=== PATIENT | female | born 1970 | race Caucasian/White ===

== ENCOUNTER 2020-07-04 16:15 | Outpatient (CLI) | payer OTHER, SELFPAY ==
--- NOTE | ~2020-07-04 | XR_ITS ---
XR chest 2V DATE: 07/04/2020 16:37 INDICATION: Dyspnea on exertion, left-sided chest pain. History of asthma. TECHNIQUE: PA and lateral views COMPARISON: None FINDINGS: Normal heart size. Prominent right cardiophrenic fat pad. No pulmonary infiltrate or consolidation, pleural effusion or pulmonary vascular congestion or pneumo thorax. IMPRESSION: No active cardiopulmonary disease Reviewed, dictated and finalized at location A. SEPARATOR
== END 2020-07-04 16:16 | disposition home or self-care (01) ==
PROVIDERS: PCP Family Medicine; Visit Provider Family Medicine
DX: R06.09 Other forms of dyspnea (principal)
CPT/HCPCS: 71046

== ENCOUNTER 2020-07-05 13:45 | Outpatient (CLI) | payer OTHER, SELFPAY ==
--- NOTE | ~2020-07-05 | CT_ITS ---
EXAMINATION: CTA chest PE protocol DATE: 07/05/2020 14:14 INDICATION: Chest pain. Shortness of breath. Elevated d-dimer. TECHNIQUE: Computed tomography (CT) pulmonary angiogram of the chest was performed with 100 mL Omnipa que-350 intravenous contrast. Additional 3D reconstructions utilizing coronal maximum intensity proje ction (MIP) were performed. Automated exposure control and iterative reconstruction technique were em ployed. The dose-length product was 672.89 mGy-cm. COMPARISON: None FINDINGS: Excellent contrast opacification of the pulmonary arteries. There is mild streak artifact from dense contrast in the superior vena cava and right atrium. Minimal scattered respiratory motion artifact wh ich does not significantly limit evaluation. No pulmonary embolism. Minimal atelectasis at the right lung base. No pneumonia, pulmonary edema, pleural effusion or pneumothorax. Heart size is normal. No pericardial effusion. Thoracic aorta is normal in caliber with no dissection. 1.8 cm left thyroid nod ule. No pathologically enlarged thoracic lymphadenopathy. Small sliding-type hiatal hernia. 1.2 cm lo w-attenuation splenic lesion most likely a cyst or hemangioma. Mild to moderate thoracic spondylosis. IMPRESSION: 1. No pulmonary embolism or other acute cardiopulmonary disease. 2. Small sliding-type hiatal hernia. 3. 1.8 cm left thyroid nodule. Would recommend thyroid ultrasound for risk stratification. Reviewed, dictated and finalized at location B. UCT COMMUNICATIONS MANAGER IMPRESSION: 1. No pulmonary embolism or other acute cardiopulmonary disease. 2. Small sliding-type hiatal hernia. 3. 1.8 cm left thyroid nodule. Would recommend thyroid ultrasound for risk stra tification.
== END 2020-07-05 13:46 | disposition home or self-care (01) ==
PROVIDERS: PCP Family Medicine; Visit Provider Family Medicine
DX: R79.1 Abnormal coagulation profile (principal); K44.9 Diaphragmatic hernia without obstruction or gangrene; E04.1 Nontoxic single thyroid nodule
CPT/HCPCS: 71275; Q9967

== ENCOUNTER 2020-07-15 13:26 | Outpatient (CLI) | payer OTHER, SELFPAY ==
--- NOTE | ~2020-07-15 | US_ITS ---
EXAMINATION: US thyroid DATE: 07/15/2020 13:56 INDICATION: Nontoxic single thyroid nodule. TECHNIQUE: Multiple ultrasound images of the thyroid were obtained. COMPARISON: Chest CT 07/05/2020 FINDINGS: The right thyroid lobe measures 5.3 x 1.5 x 1.7 cm. The left thyroid lobe measures 4.7 x 1.7 x 1.8 c m. In the right thyroid lobe, there is a 4 mm nodule. In the right thyroid lobe, there is a 5 mm nik id, hypoechoic, [id number] nodule with ill-defined margin without echogenic foci (TI-RADS TR4). In the left thyroid lobe, there is a 2.4 cm mixed cystic and solid, hypoechoic, [id number] nodul e with smooth margin without echogenic foci (TR3). IMPRESSION: 1. Thyroid nodules. Thyroid ultrasound is recommended in one year. Reviewed, dictated and finalized at location A. OGRAPHIC PRESS SET UP OPERATOR
== END 2020-07-15 13:27 | disposition home or self-care (01) ==
PROVIDERS: PCP Family Medicine; Visit Provider Family Medicine
DX: E04.2 Nontoxic multinodular goiter (principal)
CPT/HCPCS: 76536

== ENCOUNTER 2022-08-11 16:14 | Outpatient (CLI) | payer OTHER, SELFPAY ==
--- NOTE | ~2022-08-11 | MM_ITS ---
EXAMINATION: MM screening gigi BI w adriane HISTORY: Screening mammogram TECHNIQUE: Craniocaudal and mediolateral oblique 3-D tomosynthesis images were obtained and synthetic 2-D images were generated. CAD analysis was submitted and interpreted. COMPARISON: 09/26/2015, 09/16/2015 BREAST PARENCHYMAL COMPOSITION: The breasts are almost entirely fatty. FINDINGS: No suspicious mass, calcification, or architectural distortion are identified in either mony ast to suggest malignancy. There has been no suspicious interval change. IMPRESSION: 1. No mammographic evidence of malignancy. 2. Recommend routine screening mammography in one year. BI-RADS Category 1: Negative Reviewed, dictated and finalized at location A. CAL RECORDS ANALYST
== END 2022-08-11 16:15 | disposition home or self-care (01) ==
PROVIDERS: PCP Family Medicine; Visit Provider Family Medicine
DX: Z12.31 Encounter for screening mammogram for malignant neoplasm of breast (principal)
CPT/HCPCS: 77063; 77067

== ENCOUNTER 2023-06-16 09:42 | Outpatient (CLI) | payer OTHER, SELFPAY ==
--- NOTE | ~2023-06-16 | XR_ITS ---
Clinical Indication: Upper respiratory infection PA and lateral views of the chest: Comparison: 06/26/2020 Findings: The lungs are clear, without evidence of focal consolidation or pleural effusion. Cardiome diastinal silhouette is within normal limits. Bones and soft tissues are unremarkable. Impression: Normal chest. Reviewed, dictated and finalized at [facility]. MOBILE PARTS ASSEMBLER Impression: Normal chest.
== END 2023-06-16 09:43 ==
PROVIDERS: PCP Family Medicine; Visit Provider Family Medicine
DX: J06.9 Acute upper respiratory infection, unspecified (principal)
CPT/HCPCS: 71046

== ENCOUNTER → 2023-06-18 11:50 | Outpatient (CLI) | payer OTHER, SELFPAY ==
--- NOTE | ~2023-06-18 | US_ITS ---
Thyroid ultrasound. Clinical History: Thyroid nodule COMPARISON: 07/15/2020 Findings: Real-time sonography of the thyroid gland was performed. The right lobe measures 5.4 x 1.7 x 2.0 cm. The left lobe measures 4.7 x 1.5 x 1.7 cm. The isthmus is 2 mm in AP diameter. There is a 0.9 cm hypoechoic mildly heterogeneous nodule at the left lower pole. There is a 1.6 x 1.0 x 1.3 cm possible spongiform nodule at the left lower pole. There is a 0.4 cm hypoechoic nodule at t he left upper pole. There is a 0.5 cm probable cystic nodule at the right upper pole. There is a 0.8 cm partially cystic nodule at the right midpole. There is a 0.6 cm possible cystic nodule at the right mid to lower pole. Impression: Bilateral thyroid nodules predominantly appears cystic and/or spongiform appearance. Largest nodule i s in fact decreased from prior exam. Findings are most consistent with benign nodules.. Reviewed, dictated and finalized at location M. TING GANG MINER Impression: Bilateral thyroid nodules predominantly appears cystic and/or spongiform appear ance. Largest nodule is in fact decreased from prior exam. Findings are most co nsistent with benign nodules..
== END ==
PROVIDERS: PCP Family Medicine; Visit Provider Family Medicine
DX: E04.1 Nontoxic single thyroid nodule (principal)
CPT/HCPCS: 76536